=== PATIENT | male | born 1955 | race Caucasian/White ===

== ENCOUNTER 2020-12-28 21:06 | Emergency (ER) | payer BC ==
[~2020-12-28] VITALS: Ht 182.9 cm; Wt 74.8 kg
[2020-12-29 02:15] VITALS: BP 114/72
== END 2020-12-29 03:23 | disposition home or self-care (01) ==
LOC: ER 21:06
DX: T15.82XA Foreign body in other and multiple parts of external eye, left eye, initial encounter (principal); F17.210 Nicotine dependence, cigarettes, uncomplicated; W45.8XXA Other foreign body or object entering through skin, initial encounter; Y93.89 Activity, other specified; Y92.89 Other specified places as the place of occurrence of the external cause; Y99.8 Other external cause status
CPT/HCPCS: 65220